=== PATIENT | female | born 1980 | race Caucasian/White ===

== ENCOUNTER → 2020-07-10 10:16 | Outpatient (CLI) | payer OTHER, SELFPAY ==
--- NOTE | ~2020-07-10 | MR_ITS ---
EXAMINATION: MR foot LT wo con DATE: 07/10/2020 11:18 INDICATION: Stress fracture with pain over the dorsum of the base of the mid to left forefoot. TECHNIQUE: Magnetic resonance imaging (MRI) of the left fore/mid foot was performed without intraveno us contrast. Sequences included sagittal T1-weighted FSE, sagittal fluid sensitive FSE STIR, coronal PD-weighted FS FSE, coronal T1-weighted FSE, axial PD-weighted FS FSE, and axial PD-weighted FSE. COMPARISON: None FINDINGS: There is prominent marrow edema surrounding an incomplete extra-articular fracture extending across t he plantar/radial aspect of the proximal metaphyseal region of the left third metatarsal. Marrow sign al is otherwise normal throughout the remainder of the forefoot. No other fractures identified. 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 Lisfranc ligament complex is normal as are the collateral ligament com plex at the metatarsophalangeal joints. Visualized portions of the flexor and extensor tendons are no rmal. No tenosynovitis. Intrinsic musculature is unremarkable. Physiologic amount of fluid in the tracy nt spaces. Mild likely reactive edema in the soft tissues immediately surrounding the third metatarsa l fracture. IMPRESSION: 1. Likely incomplete stress fracture at the proximal metaphyseal region of the third metatarsal. Reviewed, dictated and finalized at location A. ER APPRENTICE
== END ==
PROVIDERS: PCP Physician Assistant; Visit Provider Podiatrist Foot & Ankle Surgery
DX: M84.375D Stress fracture, left foot, subsequent encounter for fracture with routine healing (principal)
CPT/HCPCS: 73718

== ENCOUNTER → 2020-09-04 15:16 | Outpatient (CLI) | payer OTHER, SELFPAY ==
--- NOTE | ~2020-09-04 | MM_ITS ---
EXAMINATION: MM screening sadiq BI w rony HISTORY: Screening mammogram TECHNIQUE: Craniocaudal and mediolateral oblique 3-D tomosynthesis images were obtained and synthetic 2-D images were generated. CAD analysis was submitted and interpreted. COMPARISON: No prior mammogram is available for comparison at this institution. BREAST PARENCHYMAL COMPOSITION: There are scattered areas of fibroglandular density. FINDINGS: RIGHT BREAST: There is no evidence of suspicious mass, calcification, or architectural distortion to suggest malignancy. LEFT BREAST: An asymmetry is present in the anterior third of the slightly inner breast 2.5 cm from t he nipple on craniocaudal tomosynthesis image . IMPRESSION: 1. Left breast asymmetry which may represent the patient's baseline however no comparison is currentl y available. 2. Comparison with prior mammograms is necessary. BI-RADS Category 0: Incomplete: Needs comparison with prior mammograms. Reviewed, dictated and finalized at location A. IMPRESSION: 1. Left breast asymmetry which may represent the patient's baseline however no comparison is currently available. 2. Comparison with prior mammograms is necessary. BI-RADS Category 0: Incomplete: Needs comparison with prior mammograms.
== END ==
PROVIDERS: PCP Physician Assistant
DX: Z12.31 Encounter for screening mammogram for malignant neoplasm of breast (principal); R92.8 Other abnormal and inconclusive findings on diagnostic imaging of breast
CPT/HCPCS: 77063; 77067